=== PATIENT | female | born 1960 | race Caucasian/White ===

== ENCOUNTER 2019-07-23 10:02 | Emergency (ER) | payer OTHER ==
[~2019-07-23] VITALS: Ht 167.6 cm; Wt 104.3 kg
[2019-07-23] MEDS ORDERED: Norco 5-325 Ta1 EACH PO (12:31)
== END 2019-07-23 12:55 | disposition home or self-care (01) ==
LOC: ER 10:02
DX: S63.501A Unspecified sprain of right wrist, initial encounter (principal); M79.644 Pain in right finger(s); Z88.8 Allergy status to other drugs, medicaments and biological substances; W19.XXXA Unspecified fall, initial encounter
CPT/HCPCS: 73130; 99283-25

== ENCOUNTER 2019-08-17 10:33 | Emergency (ER) | payer OTHER ==
[~2019-08-17] VITALS: Ht 167.6 cm; Wt 104.3 kg
[~2019-08-17 10:33] MED LIST: Norco 5-325 Ta1 EACH PO
[2019-08-17] MEDS ORDERED: Chantix1 MG (11:28)
[2019-08-17] MEDS ORDERED: Vitamin D2000 UNIT (11:28)
[2019-08-17] MEDS ORDERED: BUPR100 (11:28)
[2019-08-17] MEDS ORDERED: CYCLOBENZAPRINE5 MG PO (11:58)
[2019-08-17] MEDS ORDERED: HYDR1TAB94 PO (11:58)
== END 2019-08-17 12:14 | disposition home or self-care (01) ==
LOC: ER 10:33
DX: M54.5 Low back pain (principal); G89.29 Other chronic pain; Z88.8 Allergy status to other drugs, medicaments and biological substances
CPT/HCPCS: 99283